=== PATIENT | male | born 2000 | race Caucasian/White ===

== ENCOUNTER 2019-10-29 18:37 | Emergency (ER) | payer OTHER ==
[2019-10-29 19:02] VITALS: BP 130/58
--- NOTE | 2019-10-29 19:18 | UC ---
Respiratory Complaint HPI - HPI Summary HPI Summary: 19 year old male with no PMH presents with mild sore throat, sinus pressure, cough- productive. Denies fever, chills, shortness of breath, GI symptoms. no recent abx. missed work this AM due to symptoms. - History of Current Complaint Chief Complaint: UCRespiratory Stated Complaint: SORE THROAT/COUGH Time Seen by Provider: 10/29/19 19:15 Hx Obtained From: Patient Onset/Duration: Sudden Onset, Lasting Days - 2 Severity Initially: Mild Severity Currently: Mild Pain Intensity: 2 Pain Scale Used: 0-10 Numeric Aggravating Factors: Deep Breaths Associated Signs And Symptoms: Positive: URI, Nasal Congestion - Allergies/Home Medications Allergies/Adverse Reactions: Allergies Allergy/AdvReac Type Severity Reaction Status Date / Time Penicillins Allergy See Comment Verified 10/29/19 18:56 Home Medications: Home Medications NK [No Home Medications Reported] 10/29/19 [History Confirmed 10/29/19] PMH/Surg Hx/FS Hx/Imm Hx Previously Healthy: Yes - Surgical History Surgical History: Yes Surgery Procedure, Year, and Place: muscle/skin removed at 1 years pld on left hip area, then subseequent MRSA; wisdom teeth; - Family History Known Family History: Positive: Hypertension, Respiratory Disease, Non- Contributory - Social History Occupation: Employed Full-time Alcohol Use: Occasionally Substance Use Type: None Smoking Status (MU): Heavy Every Day Tobacco Smoker Type: Cigarettes Amount Used/How Often: 1 PPD Length of Time of Smoking/Using Tobacco: SINCE 10 Y/O Household Exposure Type: Cigarettes - Immunization History Vaccination Up to Date: Yes Review of Systems All Other Systems Reviewed And Are Negative: Yes Constitutional: Positive: Chills, Fatigue. Negative: Fever ENT: Positive: Sore Throat, Sinus Congestion, Sinus Pain/Tenderness Respiratory: Positive: Cough Gastrointestinal: Positive: Negative Neurovascular: Positive: Negative Neurological: Positive: Negative Is Patient Immunocompromised?: No Physical Exam Triage Information Reviewed: Yes Appearance: Well-Appearing, No Pain Distress, Well-Nourished Vital Signs: Initial Vital Signs Temp 97.7 F 10/29/19 18:56 Pulse 87 10/29/19 18:56 Resp 16 10/29/19 18:56 BP 130/58 10/29/19 18:56 Pulse Ox 100 10/29/19 18:56 Vital Signs Reviewed: Yes Eyes: Positive: Conjunctiva Clear ENT: Positive: Pharynx normal, TMs normal, Uvula midline. Negative: Tonsillar swelling, Tonsillar exudate, Sinus tenderness Neck: Positive: Supple, Nontender, No Lymphadenopathy. Negative: Nuchal Rigidity, Enlarged Nodes @ Respiratory: Positive: Chest non-tender, Lungs clear, Normal breath sounds, No respiratory distress. Negative: No accessory muscle use, Respiratory distress Cardiovascular: Positive: RRR, No Murmur Neurological: Positive: Alert Skin Exam: Normal Respiratory Course/Dx - Course Course Of Treatment: Viral illness - Increase fluid intake - Over the counter medications as needed for pain, fever - Work note given - GO to ER with shortness of breath, difficulty swallowing, neck pain, fever > 102 - Differential Dx/Diagnosis Differential Diagnosis/HQI/PQRI: Influenza, Laryngitis, Sinusitis Provider Diagnosis: Viral syndrome Discharge ED - Sign-Out/Discharge Documenting (check all that apply): Patient Departure All imaging exams completed and their final reports reviewed: No Studies - Discharge Plan Condition: Good Disposition: HOME Patient Education Materials: Viral Syndrome (ED) Forms: *Work Release Referrals: No Primary Care Phys,NOPCP [Primary Care Provider] - [facility] [Outside] Additional Instructions: Viral illness - Increase fluid intake - Over the counter medications as needed for pain, fever - Work note given - GO to ER with shortness of breath, difficulty swallowing, neck pain, fever > 102 - Billing Disposition and Condition Condition: GOOD Disposition: Home
[2019-10-29 19:19] LABS: Influenza A Molecular Negative (Negative); Influenza B Molecular Negative (Negative)
== END 2019-10-29 19:44 | disposition home or self-care (01) ==
LOC: UCCORT 18:37
DX: B34.9 Viral infection, unspecified (principal); J02.9 Acute pharyngitis, unspecified; R68.83 Chills (without fever); R53.83 Other fatigue; R05 Cough; R09.81 Nasal congestion; F17.210 Nicotine dependence, cigarettes, uncomplicated; Z88.0 Allergy status to penicillin
CPT/HCPCS: 99211; G0463